=== PATIENT | male | born 1980 | race Hispanic/Latino ===

== ENCOUNTER 2017-09-03 07:42 | Day surgery (SDC) | payer MEDICARE ==
[2017-09-01 08:54] LABS: APPEARANCE,URINE Clear (CLEAR); BILIRUBIN,URINE Negative (NEGATIVE); COLOR,URINE Yellow (YELLOW); GLUCOSE, URINE (UA) Negative (NEGATIVE); KETONES,URINE Negative (NEGATIVE); LEUKOCYTE ESTERASE ,URINE Trace (NEGATIVE); NITRATE,URINE Negative (NEGATIVE); OCCULT BLOOD,URINE Negative (NEGATIVE); PROTEIN,URINE Negative (NEGATIVE); UROBILINOGEN,URINE 0.2 mg/dL (0.2-1.0)
[2017-09-01 08:54] LABS: BASOPHILS % (AUTO) 1.4 % (0.0-5.0); EOSINOPHILS % (AUTO) 2.3 % (0.0-8.0); HEMATOCRIT 49.9 % (42-54); LYMPHOCYTES % (AUTO) 28.2 % (21.0-51.0); MEAN CORPUSCULAR HEMOGLOBIN 25.8 pg (27.0-33.0); MEAN CORPUSCULAR HGB CONC 32.5 g/dL (32.0-36.0); MEAN CORPUSCULAR VOLUME 79.2 fL (79-99); MONOCYTES % (AUTO) 8.2 % (3.0-13.0); NEUTROPHILS % (AUTO) 59.9 % (40.0-77.0); NUCLEATED RED BLOOD CELLS 0.1 % (0.0-0.19); PLATELET COUNT (AUTO) 234 K/uL (130-400); RED CELL DISTRIBUTION WIDTH 16.2 % (11.0-15.5); WHITE BLOOD COUNT (AUTO) 6.3 K/uL (4.8-10.8)
[2017-09-01 08:57] VITALS: BP 152/99
[2017-09-01 08:59] LABS: BACTERIA,URINE Rare /HPF (None Seen); RBC,URINE 0-1 /HPF (0-1); SQUAMOUS EPITHELIAL CELL,UR Rare /HPF (0-2); WBC,URINE 0-1 /HPF (0-1)
[2017-09-01 09:04] LABS: INR 1.06 (0.85-1.15); PARTIAL THROMBOPLASTIN TIME 26.5 SEC (26.3-35.5); PROTHROMBIN TIME 11.1 SEC (9.6-11.6)
[~2017-09-03] VITALS: Ht 182.9 cm; Wt 149.2 kg
[2017-09-03] VITALS (9 sets, daily range): BP systolic 95–157; BP diastolic 54–96
[~2017-09-03 07:42] MED LIST: ALPR2TAB7 PO; AMLO10TA2 PO; ASPI-1181 PO; CARV12.511 PO; LOSA100T29 PO; NITR0.4T50 SL
[2017-09-03] MEDS ORDERED: FENTANYL CITRATE PF 50 MCG/1 ML 2ML VIAL ONE ×2 (09:50→09:53)
[2017-09-03] MEDS ORDERED: NEOSTIGMINE 5MG/5ML SYR IV ONE (09:50)
[2017-09-03] MEDS ORDERED: ONDANSETRON HCL 4 MG/2 ML VIAL ONE (09:50)
[2017-09-03] MEDS ORDERED: MIDAZOLAM HCL 1 MG/ML 2ML VIAL ONE ×3 (09:50→10:40)
[2017-09-03] MEDS ORDERED: GLYCOPYRROLATE 0.2 MG/ML 5 ML VIAL ONE (09:50)
[2017-09-03] MEDS ORDERED: LIDOCAINE PF 2% 5ML ABBOJECT ONE (09:50)
[2017-09-03] MEDS ORDERED: PROPOFOL 10 MG/ML 20ML VIAL IV ONE ×2 (09:50→09:51)
[2017-09-03] MEDS ORDERED: DEXAMETHASONE SOD PHOSPHATE 10MG/ML 1ML VIAL ONE (09:50)
[2017-09-03] MEDS ORDERED: KETAMINE HCL 100 MG/ML 5ML VIAL IJ ONE (09:56)
[2017-09-03] MEDS ORDERED: HEPARIN SODIUM 1000UNIT/ML 10ML VIAL ONE (09:57)
[2017-09-03] MEDS ORDERED: ISOVUE-370 50ML VIAL IV ONE (09:57)
[2017-09-03] MEDS ORDERED: IOPAMIDOL-370 100 ML VIAL IV ONE ×2 (09:57→10:04)
[2017-09-03] MEDS ORDERED: NITROGLYCERIN 5 MG/ML 10 ML VIAL IV ONE (09:57)
[2017-09-03] MEDS ORDERED: LIDOCAINE HCL 2% 20ML ONE (09:58)
[2017-09-03] MEDS ORDERED: BIVALIRUDIN 250 MG/VIAL IV ONE (10:37)
[2017-09-03] MEDS ORDERED: SODIUM CHLORIDE 0.9% 1000ML 1,000 ML IV SCH (11:04)
== END 2017-09-03 15:08 | disposition home or self-care (01) ==
LOC: DAH 07:42
PROVIDERS: ATTEND Internal Medicine Cardiovascular Disease
DX: I25.119 Atherosclerotic heart disease of native coronary artery with unspecified angina pectoris (principal); I63.9 Cerebral infarction, unspecified; G89.29 Other chronic pain; G47.33 Obstructive sleep apnea (adult) (pediatric); F20.89 Other schizophrenia; F31.9 Bipolar disorder, unspecified; Z98.890 Other specified postprocedural states; R63.4 Abnormal weight loss; Z68.42 Body mass index [BMI] 45.0-49.9, adult; Z79.899 Other long term (current) drug therapy; Z79.01 Long term (current) use of anticoagulants; R06.02 Shortness of breath; I10 Essential (primary) hypertension
CPT/HCPCS: 36252; 36415; 71045; 80048; 81001; 85025; 85610; 85730; 93005; 93458; A4606; C1760; C1894; J1100; J1644; J2001; J2250 ×3; J2405; J2704 ×2; J2710; J3010 ×2; J3490 ×3; Q9967; J0583

== ENCOUNTER → 2023-12-14 | Outpatient (CLI) | payer OTHER, MEDICARE ==
[~2023-12-14] MED LIST changes: +AMLO-258 PO; -AMLO10TA2 PO; -ASPI-1181 PO; +ASPI-1443 PO; -LOSA100T29 PO; +LOSA100T59 PO
[2023-12-14 16:26] LABS: CREATININE 1.1 mg/dL (0.5-1.3); MAGNESIUM 2.1 mg/dL (1.80-2.40); POTASSIUM 3.9 mmol/L (3.5-5.1)
== END | disposition home or self-care (01) ==
LOC: LAB 15:00
PROVIDERS: ATTEND Internal Medicine Cardiovascular Disease
DX: I25.10 Atherosclerotic heart disease of native coronary artery without angina pectoris (principal)
CPT/HCPCS: 36415; 80048; 83735